=== PATIENT | male | born 1985 | race Caucasian/White ===

== ENCOUNTER 2023-01-01 13:10 | Emergency (ER) | payer SELFPAY ==
[~2023-01-01] VITALS: Wt 93.0 kg
[2023-01-01 13:50] LABS: BILIRUBIN Negative (Negative); BLOOD Negative (Negative); CLARITY Clear (Clear); COLOR Yellow (Yellow); GLUCOSE Negative (Negative); KETONE Negative (Negative); LEUKO ESTERASE 1+ (Negative); NITRITE Negative (Negative); SPECIFIC GRAVITY 1.025 (1.001-1.030); UROBILINOGEN 0.2 E.U./dl (0.0-1.0)
[2023-01-01 14:08] LABS: BASO % 0.3 % (0.0-1.0); EOS # 0.2 10*3/uL (0.0-0.4); EOS % 2.1 % (1.0-4.0); HEMATOCRIT 43.4 % (42.0-52.0); LYMPH # 3.3 10*3/uL (1.3-4.4); LYMPH % 43.1 % (27.0-41.0); MEAN CELL VOLUME 88.2 fl (80.0-94.0); MEAN CORPUSCULAR HGB 31.1 pg (27.0-31.0); MEAN CORPUSCULAR HGB CONC 35.3 g/dl (33.0-37.0); MEAN PLATELET VOLUME 9.4 fl (9.6-12.3); MONO # 0.4 10*3/uL (0.1-1.0); NEUT # 3.7 10*3/uL (2.3-7.9); NEUT % 49.2 % (47.0-73.0); PLATELET COUNT AUTOMATED 248 10*3/uL (130-400); RED BLOOD COUNT 4.92 10*6/uL (4.50-5.90); RED CELL DISTRI WIDTH 12.4 % (0-14.5); WHITE BLOOD COUNT 7.6 10*3/uL (4.8-10.8)
[2023-01-01 14:15] LABS: BACTERIA 1+; EPITHELIAL CELLS 0-2; RBC 0-2 rbc/hpf (0-2)
[2023-01-01 14:32] LABS: ALKALINE PHOSPHATASE 62 U/L (46-116); BUN 11 mg/dl (9-23); CHLORIDE 106 mmol/L (98-107); POTASSIUM 3.6 mmol/L (3.4-5.1); SGPT/ALT 18 U/L (10-49)
[2023-01-01] MEDS ORDERED: CIPRO500 MG PO (15:46)
[2023-01-01] MEDS ORDERED: METRONIDAZOLE500 M1 PO (15:46)
== END 2023-01-01 15:48 | disposition home or self-care (01) ==
LOC: ED 13:10
PROVIDERS: Emergency Medicine; Internal Medicine
DX: N39.0 Urinary tract infection, site not specified (principal); Z20.2 Contact with and (suspected) exposure to infections with a predominantly sexual mode of transmission; Z91.041 Radiographic dye allergy status

== ENCOUNTER 2025-01-30 08:26 | Emergency (ER) | payer SELFPAY ==
[~2025-01-30] VITALS: Wt 93.0 kg
[~2025-01-30 08:26] MED LIST: CIPRO500 MG PO; METRONIDAZOLE500 M1 PO
[2025-01-30] MEDS ORDERED: AZITHROMYCIN 250 MG TAB PO ONE (09:00)
== END 2025-01-30 09:48 | disposition home or self-care (01) ==
LOC: ED 08:26
DX: M54.50 Low back pain, unspecified (principal); Z88.8 Allergy status to other drugs, medicaments and biological substances